=== PATIENT | female | born 2005 | race Caucasian/White ===

== ENCOUNTER 2023-02-12 12:18 | Emergency (ER) | payer BC ==
[~2023-02-12] VITALS: Ht 157.5 cm; Wt 82.1 kg
[2023-02-12] MEDS ORDERED: ALBUTEROL/IPRATROPIUM 3 ML NEB ONE (12:41)
[2023-02-12 12:43] VITALS: PULSE 93; RESP 18
[2023-02-12] MEDS ORDERED: ALBUTEROL/IPRATROPIUM 3 ML NEB NEB ONE (12:45)
[2023-02-12 13:22] VITALS: O2SAT 97
[2023-02-12] MEDS ORDERED: PROVENTIL HFA6.7 GM INH (14:22)
== END 2023-02-12 14:33 | disposition home or self-care (01) ==
LOC: FSED 12:23
DX: R05.9 Cough, unspecified (principal); R07.89 Other chest pain; R11.10 Vomiting, unspecified
CPT/HCPCS: 71046; 99283